=== PATIENT | male | born 1985 | race Caucasian/White ===

== ENCOUNTER 2018-11-27 22:04 | Emergency (ER) | payer MEDICAID ==
[~2018-11-27] VITALS: Ht 190.5 cm; Wt 72.6 kg
[2018-11-27 22:27] VITALS: BP 113/61
--- NOTE | 2018-11-27 22:30 | NUR ---
TO LOBBY A/W BED, JUAQUIN SMITH NOTED
--- NOTE | 2018-11-27 22:50 | NUR ---
ASSUMED CARE OF PT AT THIS TIME. C/O RIGHT THIRD FINGER PAIN/SWELLING, OBVIOUS DEFORMITY NOTED S/P "JAMMING" FINGER INTO A CAR DOOR. AAOX4 WITH EVEN AND STEADY GAIT; PATIENT STATES PAIN OF 10/10; VSS; PATIENT POSITIONED FOR COMFORT; HOB ELEVATED; BEDRAILS UP X2; BED DOWN. ER MD MADE AWARE OF PT STATUS. WILL CONTINUE TO MONITOR.
--- NOTE | 2018-11-27 22:50 | NUR ---
PT TAKEN TO BED 3
--- NOTE | 2018-11-27 22:58 | NUR ---
Dr. Ortiz evaluating patient at bedside.
[2018-11-27] MEDS ORDERED: KETOROLAC 60 MG/2 ML VIAL IM ONE (23:15)
--- NOTE | 2018-11-27 23:15 | NUR ---
X-Ray at bedside.
[2018-11-28 00:15] VITALS: BP 112/60
== END 2018-11-28 00:15 | disposition home or self-care (01) ==
LOC: MED 22:04
DX: S63.612A Unspecified sprain of right middle finger, initial encounter (principal); W22.8XXA Striking against or struck by other objects, initial encounter; Y93.89 Activity, other specified; Y92.89 Other specified places as the place of occurrence of the external cause; Y99.8 Other external cause status
CPT/HCPCS: 73130; 99283; J1885; Q0092

== ENCOUNTER 2018-11-28 10:13 | Emergency (ER) | payer MEDICAID ==
[~2018-11-28] VITALS: Ht 190.5 cm; Wt 73.2 kg
[2018-11-28 10:25] VITALS: BP 107/62
--- NOTE | 2018-11-28 12:30 | NUR ---
NO ANSWER IN ER LOBBY
--- NOTE | 2018-11-28 13:08 | NUR ---
NO ANSWER IN ER LOBBY
--- NOTE | 2018-11-28 13:44 | NUR ---
NO ANSWER IN LOBBY
--- NOTE | 2018-11-28 13:46 | NUR ---
PATIENT LEFT WITHOUT BEING SEEN BY DR. VAUGHN. NO FURTHER CARE PROVIDED FOR PATIENT.
--- NOTE | 2018-11-28 14:50 | NUR ---
BIB SELF WITH C/O ANXIETY AND TACHYCARDIA TODAY. PER PT RUN OUT OF ATIVAN. HR 77, BP 107/62, SPO2 100% ON ROOM AIR. WAS SEEN LAST NIGHT FOR RT MIDDLE FINGER SPRAIN AND PRESCRIBED WITH MOTRIN.
[2018-11-28 15:24] VITALS: BP 107/62
== END 2018-11-28 15:25 | disposition home or self-care (01) ==
LOC: MED 10:13
DX: F41.9 Anxiety disorder, unspecified (principal); F17.200 Nicotine dependence, unspecified, uncomplicated
CPT/HCPCS: 99284

== ENCOUNTER 2018-12-29 00:27 | Emergency (ER) | payer MEDICAID ==
[~2018-12-29] VITALS: Ht 190.5 cm; Wt 74.8 kg
[2018-12-29 00:31] VITALS: BP 110/64
--- NOTE | 2018-12-29 00:36 | NUR ---
PT TAKEN TO BED 12
--- NOTE | 2018-12-29 00:40 | NUR ---
PATIENT PRESENTS ER WITH C/O LEG PAIN AND ANXIETY. PT STATES HE HAS HX OF ANXIETY.PT IS A/O X4. PT DENIES TRAUMA TO THE LEG. PT STATES HE HAS SOME EDEMA. MILD EDEMA WAS ASSESSED 2+.NO REDNESS WAS ASSESSED. PATIENT STATES PAIN OF 7/10 AT THIS TIME; VSS; PATIENT POSITIONED FOR COMFORT; HOB ELEVATED; BEDRAILS UP X2; BED DOWN. ER MD MADE AWARE OF PT STATUS.
[2018-12-29] MEDS ORDERED: ALPRAZolam 0.5 MG TAB PO ONE (00:45)
[2018-12-29 01:00] LABS: BASOPHILS # (AUTO) 0.1 K/uL (0.00-0.22); EOSINOPHILS # (AUTO) 0.2 K/uL (0-0.4); EOSINOPHILS % (AUTO) 2.4 % (0.0-4.0); HEMATOCRIT 35.3 % (36-52); HEMOGLOBIN 11.4 g/dL (12.0-18.0); LYMPHOCYTES # (AUTO) 1.9 K/uL (2.0-11.5); LYMPHOCYTES % (AUTO) 24.4 % (20.5-51.1); MEAN CORPUSCULAR HEMOGLOBIN 29 pg (27-31); MEAN CORPUSCULAR HGB CONC 32 g/dL (33-37); MEAN CORPUSCULAR VOLUME 88.4 fL (80-94); MONOCYTES # (AUTO) 0.6 K/uL (0.8-1.0); MONOCYTES % (AUTO) 7.4 % (1.7-9.3); NEUTROPHILS % (AUTO) 64.8 % (42.2-75.2); PLATELET COUNT (AUTO) 269 K/uL (140-450); RED BLOOD CELL COUNT(AUTO) 3.99 MIL/uL (4.20-6.10); RED CELL DISTRIBUTION WIDTH 16.9 % (11.6-13.7); WHITE BLOOD COUNT (AUTO) 7.7 K/uL (4.8-10.8)
[2018-12-29 01:14] LABS: ALBUMIN 3.7 g/dL (3.4-5.0); ANION GAP 11.9 (8-16); CARBON DIOXIDE 25.9 mmol/L (21-32); POTASSIUM 3.8 mmol/L (3.5-5.1); TOTAL BILIRUBIN 0.5 mg/dL (0.0-1.0)
[2018-12-29 01:15] LABS: APPEARANCE,URINE CLOUDY (CLEAR); BILIRUBIN,URINE 1+ (NEGATIVE); BLOOD, URINE 3+ (NEGATIVE); COLOR,URINE YELLOW (YELLOW); LEUKOCYTE ESTERASE ,URINE NEGATIVE (NEGATIVE); NITRITE, URINE NEGATIVE (NEGATIVE); UGLUCOSE NEGATIVE (NEGATIVE)
--- NOTE | 2018-12-29 01:15 | NUR ---
X-Ray at bedside.
[2018-12-29 01:23] LABS: BARBITURATE, URINE NEG. ng/ml (NEG <=200); BENZODIAZEPINE, URINE POS. ng/mL (NEG <=200); CANNABINOID, URINE POS. ng/mL (NEG <=50); COCAINE, URINE NEG. ng/mL (NEG <=300); OPIATE, URINE NEG. ng/mL (NEG <=2000); PHENCYCLIDINE SCREEN,URINE NEG. ng/mL (NEG <=25)
[2018-12-29 01:31] LABS: RBC,URINE TOO NUMEROUS TO COUN /HPF (0-5); WBC,URINE 0-5 (RARE) /HPF (0-5)
[2018-12-29 01:48] VITALS: BP 110/64
--- NOTE | 2018-12-29 01:48 | NUR ---
Patient discharged with v/s stable. Written and verbal after care instructions given and explained. Patient verbalized understanding. Ambulatory with steady gait. All questions addressed prior to discharge. Advised to follow up with PMD.
== END 2018-12-29 01:48 | disposition home or self-care (01) ==
LOC: MED 00:27
DX: F41.9 Anxiety disorder, unspecified (principal); R60.0 Localized edema
CPT/HCPCS: 36415; 71045; 80053; 80305; 81001; 83880; 85025; 99284; Q0092

== ENCOUNTER 2018-12-29 22:09 | Emergency (ER) | payer MEDICAID ==
[~2018-12-29] VITALS: Ht 190.5 cm; Wt 75.1 kg
[2018-12-29 22:33] VITALS: BP 114/67
--- NOTE | 2018-12-29 22:41 | NUR ---
PT TAKEN TO BED 9
[2018-12-29 23:20] VITALS: BP 114/67
--- NOTE | 2018-12-29 23:20 | NUR ---
33 Y/O M PRESENTED TO ED WITH C/O PANIC ATTACK. RECENT ATTACK STARTED YESTERDAY. PER PT ATTACKS HAVE BEEN OCCURING SINCE HE WAS 20. CAME TO ED 12/28/18 WITH SAME COMPLIANT. VSS. MAYBERRYOXPaola. AWARE. WILL CONTINUE TO MONITOR.
--- NOTE | 2018-12-29 23:30 | NUR ---
PATIENT LEFT WITHOUT BEING SEEN BY . NO FURTHER CARE PROVIDED FOR PATIENT.
== END 2018-12-29 23:30 | disposition left against medical advice (07) ==
LOC: MED 22:09
DX: F41.9 Anxiety disorder, unspecified (principal); Z53.21 Procedure and treatment not carried out due to patient leaving prior to being seen by health care provider

== ENCOUNTER 2019-07-20 20:17 | Emergency (ER) | payer MEDICAID ==
[~2019-07-20] VITALS: Ht 185.4 cm; Wt 73.0 kg
[2019-07-20 20:28] VITALS: BP 142/75
--- NOTE | 2019-07-20 20:33 | NUR ---
WILL CONTINUE TO MONITOR. AA0X4. PT TO [facility]
--- NOTE | 2019-07-20 20:33 | NUR ---
Mayank acharya in [facility] - 07/20/19 at 2033 by [email or web address] PT TO WAIT IN [facility]. VSS
--- NOTE | 2019-07-20 22:06 | NUR ---
34 Y/O MALE PRESENTS TO ED, C/O OF ANXIETY ATTACK. PT STATES ANXIETY ATTACK STARTED LAST NIGHT. PT TAKES 2MG ATIVAN DAILY BUT HAS NOT TAKEN IT FOR THE PAST 7 DAYS DUE TO SWITCHING OF PCP. PT DENIES ANY SOB OR CHEST PAIN. PT VSS. ERMD AWARE. WILL CONTINUE TO MONITOR.
[2019-07-20] MEDS ORDERED: LORazepam 1 MG TAB PO ONE (22:30)
--- NOTE | 2019-07-20 22:34 | NUR ---
ASKING FOR MED REFILL, C/O ANXIETY AND SOB X TODAY. 98% RAFlash JOHNSON AT 111. PT SPEAKING SOFT AND QUIET PMH- ANXIETY, PANIC ATTACKS, PULMONARY EDEMA RX- ATIVAN 2 MG DAILY
--- NOTE | 2019-07-20 22:35 | NUR ---
ATIVAN ADMINISTERED ORDERED
[2019-07-20 22:53] VITALS: BP 148/65
== END 2019-07-20 22:53 | disposition home or self-care (01) ==
LOC: MED 20:17
DX: F41.9 Anxiety disorder, unspecified (principal); I10 Essential (primary) hypertension; F17.200 Nicotine dependence, unspecified, uncomplicated; Z71.6 Tobacco abuse counseling
CPT/HCPCS: 99284

== ENCOUNTER 2019-08-05 22:27 | Emergency (ER) | payer MEDICAID ==
[~2019-08-05] VITALS: Ht 190.5 cm; Wt 72.6 kg
[2019-08-05 22:37] VITALS: BP 103/66
[2019-08-05] MEDS ORDERED: ALBUTEROL SULFATE/IPRATROPIU 3 ML SOL IH ONE (23:40)
== END 2019-08-05 23:55 | disposition home or self-care (01) ==
LOC: MED 22:27
DX: F41.9 Anxiety disorder, unspecified (principal); J45.909 Unspecified asthma, uncomplicated; F17.200 Nicotine dependence, unspecified, uncomplicated; F15.10 Other stimulant abuse, uncomplicated; Z98.890 Other specified postprocedural states; Z76.0 Encounter for issue of repeat prescription
CPT/HCPCS: 99283